=== PATIENT | female | born 1975 | race Caucasian/White ===

== ENCOUNTER 2017-11-20 16:27 | Outpatient (CLI) | END 2017-11-20 16:28 | disposition home or self-care (01) | LOC: LAB 16:27 | PROVIDERS: ATTEND Family Medicine | DX: E03.9 Hypothyroidism, unspecified (principal) | CPT/HCPCS: 36415; 84439; 84443; 84481 ==

== ENCOUNTER 2018-11-26 09:26 | Outpatient (CLI) | END 2018-11-26 09:27 | disposition home or self-care (01) | LOC: LAB 09:26 | PROVIDERS: ATTEND Family Medicine | DX: E03.9 Hypothyroidism, unspecified (principal); R53.83 Other fatigue; E55.9 Vitamin D deficiency, unspecified; R68.82 Decreased libido; Z79.899 Other long term (current) drug therapy; Z13.220 Encounter for screening for lipoid disorders | CPT/HCPCS: 36415; 80053; 80061; 82306; 82607; 82626; 84402; 84403; 84439; 84443; 84481; 85027 ==

== ENCOUNTER 2019-03-21 09:04 | Outpatient (CLI) | END 2019-03-21 09:05 | disposition home or self-care (01) | LOC: LAB 09:04 | PROVIDERS: ATTEND Family Medicine | DX: E03.9 Hypothyroidism, unspecified (principal); R53.83 Other fatigue; E55.9 Vitamin D deficiency, unspecified; R68.82 Decreased libido; Z79.899 Other long term (current) drug therapy | CPT/HCPCS: 36415; 80053; 82306; 84402; 84403; 84439; 84443; 84481 ==